=== PATIENT | female | born 1995 | race African-American/Black ===

== ENCOUNTER 2024-12-20 14:01 | Emergency (ER) | payer OTHER ==
[2024-12-20 14:09] VITALS: RESP 18; BMI 32.5
[2024-12-20] MEDS ORDERED: PROCHLORPERAZINE INJECTION 10 MG/2 ML VIAL ONE (15:10)
[2024-12-20 15:12] LABS: ABSOLUTE IMMATURE GRANULOCYTES 0.01 x10^3/uL (0.0-0.031); BASOPHILS # 0.02 x10^3/uL (0.01-0.08); EOSINOPHIL % 0.9 % (0.7-5.8); EOSINOPHILS # 0.07 x10^3/uL (0.04-0.36); MCHC 31.9 g/dl (32.2-35.5); MEAN CELL VOLUME 97.7 fl (79.4-94.8); MEAN PLT VOLUME 11.0 fl (9.4-12.3); MONOCYTE # 0.35 x10^3/uL (0.24-0.86); MONOCYTE % 4.6 % (4.7-12.5); RDW 12.6 % (12.1-16.5)
[2024-12-20] MEDS: SODIUM CHLORIDE 0.9% 500 ML INFUS.BAG IV ONE (15:20)
[2024-12-20] MEDS: PROCHLORPERAZINE INJECTION 10 MG/2 ML VIAL IVPB ONE (15:21)
[2024-12-20 15:40] LABS: CO2 29 mmol/L (21-32)
[2024-12-20 15:41] LABS: GLUCOSE,RANDOM 102 mg/dL (74-106)
[2024-12-20 15:43] LABS: SGOT/AST 13 U/L (15-37); SGPT/ALT 23 U/L (13-61)
[2024-12-20 15:44] LABS: CREATININE 0.5 mg/dL (0.55-1.3)
[2024-12-20 15:45] LABS: TOT PROT 6.3 g/dl (6.4-8.2)
[2024-12-20 15:46] LABS: ALK PHOS 61 U/L (45-117)
[2024-12-20] MEDS ORDERED: KETOROLAC TROMETHAMINE 15 MG/ML VIAL ONE (16:03)
[2024-12-20] MEDS: KETOROLAC TROMETHAMINE 15 MG/ML VIAL IVPUSH ONE (16:06)
[2024-12-20] MEDS: ACETAMINOPHEN 1000 MG/100 ML BAG IVPB ONE (16:07)
[2024-12-20 19:47] VITALS: BP 105/73; PULSE 62
[2024-12-20 23:42] LABS: HIV INTERPRETATION NEGATIVE (NEGATIVE)
[2024-12-21 20:29] LABS: HCV DIAGNOSTIC IN-HOUSE W/RFLX NON-REACTIVE (NONREACTIVE)
== END 2024-12-20 20:10 | disposition home or self-care (01) ==
LOC: JER 14:01
PROC: 3E033GC Introduction of Other Therapeutic Substance into Peripheral Vein, Percutaneous Approach (ICD-10-PCS; principal; 2024-12-20)
PROC: 3E033GC Introduction of Other Therapeutic Substance into Peripheral Vein, Percutaneous Approach (ICD-10-PCS; 2024-12-20)
PROC: 3E033GC Introduction of Other Therapeutic Substance into Peripheral Vein, Percutaneous Approach (ICD-10-PCS; 2024-12-20)
DX: G43.909 Migraine, unspecified, not intractable, without status migrainosus (principal); R06.02 Shortness of breath; R11.0 Nausea; R10.84 Generalized abdominal pain
CPT/HCPCS: 36415; 70450-TC; 80053; 80164; 80307; 82140; 84443; 84703; 85025; 86803; 87389; 93005; 93010; 99285-25